=== PATIENT | female | born 1960 | race Caucasian/White ===

== ENCOUNTER 2016-05-25 18:28 | Emergency (ER) | payer OTHER ==
[2016-05-25 19:03] VITALS: BP 111/60
--- NOTE | 2016-05-25 19:33 | UC ---
Cardiac HPI - HPI Summary HPI Summary: The patient comes in today for: 1. Cough, "horizontal chest pain," Onset: Cough 10 days, horizontal chest pain x 3 days. Palliative/provocative: Walking makes her more short of breath. Coughing makes her chest pain worse. Quality: Dull chest pain. Region: Right and left chest retrosternal Severity: 3/10 Time: Constant. Associated symptoms: Walking makes her more short of breath. Walking does not necessarily makes her chest pain worse. Fevers: None recently Previous cardiac disease: None. But, she has not seen a physician in 10 years. CAD risk factors: Smoking: (-), HTN: (-), DM: (-), Fam Hx: (-), cholesterol: (?) Nausea: None. Diaphoresis: Present. Heartburn: Negative Post nasal drip: Negative. * - History of Current Complaint Chief Complaint: UCChestPain Stated Complaint: CHEST & EAR PAIN,COUGH Time Seen by Provider: 05/25/16 19:27 Hx Obtained From: Patient - Allergy/Home Medications Allergies/Adverse Reactions: Allergies Allergy/AdvReac Type Severity Reaction Status Date / Time No Known Allergies Allergy Verified 05/25/16 18:54 Home Medications: Home Medications Dextromethorphan-Phenylephrine [Theraflu Expressmax Sever 10-5-325 mg] 2 tab PO Q4HR PRN 05/25/16 [History Confirmed 05/25/16] PMH/Surg Hx/FS Hx/Imm Hx Previously Healthy: Yes Endocrine History Of: Denies: Diabetes, Thyroid Disease, Hyperthyroidism, Hypothyroidism, Dyslipidemia Cardiovascular History Of: Denies: Cardiac Disorders, Hypertension, Pacemaker/ICD, Myocardial Infarction , Congestive Heart Failure, Atrial Fibrillation, Deep Vein Thrombosis, Bleeding Disorders Respiratory History Of: Denies: COPD, Asthma, Bronchitis, Pneumonia, Pulmonary Embolism GI/ History Of: Denies: Gastroesophageal Reflux, Ulcer, Gastrointestinal Bleed, Gall Bladder Disease, Kidney Stones, Diverticulitis, Renal Disease, Urosepsis Neurological History Of: Denies: TIA, CVA, Dementia, Seizures, Migraine Psychological History Of: Denies: Anxiety, Depression, Bipolar Disorder, Schizophrenia, Post Traumatic Stress Disorder Cancer History Of: Denies: Lung Cancer, Colorectal Cancer, Breast Cancer, Prostate Cancer, Cervical Cancer Other History Of: Negative For: HIV, Hepatitis B, Hepatitis C, Anticoagulant Therapy - Surgical History Surgical History: Yes Surgery Procedure, Year, and Place: at 14 yoa partial thyroidectomy - no meds - Family History Known Family History: Negative: Cardiac Disease, Hypertension - Social History Occupation: Employed Full-time Alcohol Use: Weekly Substance Use Type: None Smoking Status (MU): Never Smoked Tobacco - Immunization History Most Recent Influenza Vaccination: Not utd Most Recent Tetanus Shot: Unsure Review of Systems Constitutional: Negative Skin: Negative Eyes: Negative ENT: Negative, Sore Throat, Nasal Discharge - Clear. Respiratory: Cough Cardiovascular: Chest Pain Gastrointestinal: Negative Genitourinary: Negative Motor: Negative All Other Systems Reviewed And Are Negative: Yes Physical Exam Triage Information Reviewed: Yes Appearance: Well-Appearing, No Pain Distress, Well-Nourished Vital Signs: Initial Vital Signs Temp 99.6 F 05/25/16 18:56 Pulse 87 05/25/16 18:56 Resp 16 05/25/16 18:56 BP 111/60 05/25/16 18:56 Pulse Ox 98 05/25/16 18:56 Vital Signs Reviewed: Yes Eyes: Positive: Conjunctiva Clear ENT: Positive: Hearing grossly normal. Negative: Pharyngeal erythema, Nasal congestion, Nasal drainage, TM bulging, TM dull, TM red, Tonsillar swelling, Tonsillar exudate Dental: Negative: Gross Decay/Caries @, Dental Fracture @ Neck: Positive: Supple, Nontender, No Lymphadenopathy. Negative: Nuchal Rigidity Respiratory: Positive: Lungs clear, No respiratory distress, No accessory muscle use. Negative: Rhonchi, Wheezing, Expiration, Inspiration Cardiovascular: Positive: RRR, No Murmur Abdomen Description: Positive: Nontender, No Organomegaly, Soft. Negative: Distended, Guarding Musculoskeletal: Positive: Strength Intact, ROM Intact, Other: - Pressure of the left sternal border does reproduce her "horizontal chest pain." Neurological: Positive: Alert, Muscle Tone Normal Psychological: Positive: Age Appropriate Behavior, Consolable Skin: Negative: rashes, breakdown Diagnostics - Laboratory Diagnostic Studies Completed/Ordered: EKG: Rate: 83. Rhythm: sinus. Ectopy: None. Acute changes: None. - Radiology No standard instances Xray Interpretation: No Acute Changes Radiology Interpretation Completed By: Radiologist - Assessment/Plan Course Of Treatment: Patient was told of the negative CXR for pneumonia. She was told of her treatment options and will start medications at this time. - Clinical Impression Provider Diagnoses: Post infectious cough Discharge - Discharge Plan Condition: Stable Disposition: HOME Patient Education Materials: Chronic Cough (ED), Upper Respiratory Infection ( ED), Sinusitis (ED) Referrals: [facility] [place], [place] [facility]AL [Outside] Francisco Hilton MD [Primary Care Provider] - 1 Week (Please see your primary care provider in about three days to see how well you are doing. If you don't have a primary care provider, please contact the physician referral service. If you can't get in timely, please you may come back to see us until you can. If you get worse, please be seen sooner by us or the ER.)
--- NOTE | 2016-05-25 20:10 | RAD ---
HISTORY: Cough, chest pain COMPARISONS: None VIEWS: 2: Frontal dual-energy and lateral views of the chest. FINDINGS: CARDIOMEDIASTINAL SILHOUETTE: The cardiomediastinal silhouette is normal. MIRTHA: The mirtha are normal. PLEURA: The costophrenic angles are sharp. No pleural abnormalities are noted. LUNG PARENCHYMA: There is minimal linear opacification of the right lung base ABDOMEN: The upper abdomen is clear. There is no subphrenic gas. BONES AND SOFT TISSUES: No bone or soft tissue abnormalities are noted. OTHER: None. IMPRESSION: MINIMAL LINEAR ATELECTASIS OF THE RIGHT LUNG BASE
== END 2016-05-25 20:46 | disposition home or self-care (01) ==
LOC: UCEAST 18:28
DX: R05 Cough (principal); R07.2 Precordial pain; R06.02 Shortness of breath
CPT/HCPCS: 71020; 93005; 99202; G0463

== ENCOUNTER 2019-06-18 09:21 | Emergency (ER) | payer OTHER ==
--- NOTE | 2019-06-18 09:28 | UC ---
UC General HPI - HPI Summary HPI Summary: reviewed [facility] pt states her right eyelid is swollen, symptoms for two days. Pt was told she may have a blocked tear duct. Pleasant 59 yo female c/o R swollen eyelid since yesterday am. No fever / chills. Vision a little blurry. Has been using teabags to the eyelid every couple hours. This am awoke, it was worse. Noted clear like drainage sticking the eyelids together. Not sure if has sinus issues, if so she reports that she is asymptomatic. No fever / chills. No ear pain. No sob /cp / cough. No GI sx reported. Tested covid 19 results neg 06/06/19 (after possible exposure). - History of Current Complaint Stated Complaint: EYE COMPLAINT Time Seen by Provider: 06/18/19 09:27 Hx Obtained From: Patient - Allergy/Home Medications Allergies/Adverse Reactions: Allergies Allergy/AdvReac Type Severity Reaction Status Date / Time No Known Allergies Allergy Verified 06/18/19 09:34 Home Medications: Home Medications Amoxicillin/Clavulanate TAB* [Augmentin TAB 875*] 875 mg PO BID #10 tab [Rx] Erythromycin OPTH OINT* [Erythromycin 0.5% OPTH OINT*] 1 applic RIGHT EYE TID 5 Days #1 ophth.oint 06/18/19 [Rx] PMH/Surg Hx/FS Hx/Imm Hx Previously Healthy: Yes Other History Of: Negative For: HIV, Hepatitis B, Hepatitis C, Anticoagulant Therapy - Surgical History Surgical History: Yes Surgery Procedure, Year, and Place: at 14 yoa partial thyroidectomy - no meds - Family History Known Family History: Negative: Cardiac Disease, Hypertension - Social History Alcohol Use: Weekly Substance Use Type: None Smoking Status (MU): Never Smoked Tobacco - Immunization History Most Recent Influenza Vaccination: Not utd Most Recent Tetanus Shot: Unsure Review of Systems All Other Systems Reviewed And Are Negative: Yes Constitutional: Positive: Negative Skin: Positive: Negative Eyes: Positive: Blurred Vision, Drainage ENT: Positive: Negative - see hpi Respiratory: Positive: Negative Cardiovascular: Positive: Negative Gastrointestinal: Positive: Negative Genitourinary: Positive: Negative Motor: Positive: Negative Neurovascular: Positive: Negative Musculoskeletal: Positive: Negative Neurological/Mental Status: Positive: Negative Psychological: Positive: Negative Is Patient Immunocompromised?: No Physical Exam Triage Information Reviewed: Yes Appearance: Well-Appearing Vital Signs Reviewed: Yes Eye Exam: Other - perrla eomi R upper lid + focal swelling at base of eyelash, + mild redness extending superiorly. Both eyes a little watery. Denies use of contact lens or makeup. R sclera a little injected. Declines flourescein stain. ENT Exam: Normal - TM lane, post pharynx nad Neck exam: Normal Neck: Positive: Supple, Nontender, No Lymphadenopathy Respiratory Exam: Normal - RR normal, no dyspnea, no tachypnea Cardiovascular Exam: Normal - nad Abdominal Exam: Normal Musculoskeletal Exam: Normal Neurological Exam: Normal - grossly nonfocal Psychological Exam: Normal - nad Skin Exam: Normal - no visible or reported rash. see eye exam Course/Dx - Course Course Of Treatment: Eye is a little watery, but not overly red (a little injected), non tender, nonphotophobic. Pt thinks visual acuity discrepancy was d/t her glasses fogging up during the vis acuity check. Seems ok now. + c/w stye. Mild associated cellulitis. reivewed coa / tx plan. immun utd per pt. Questions as posed answered to the best of my ability. - Diagnoses Provider Diagnosis: Stye, Cellulitis of right eyelid Discharge ED - Sign-Out/Discharge Documenting (check all that apply): Patient Departure All imaging exams completed and their final reports reviewed: No Studies - Discharge Plan Condition: Stable Disposition: HOME Prescriptions: Amoxicillin/Clavulanate TAB* [Augmentin TAB 875*] 875 mg PO BID #10 tab Erythromycin OPTH OINT* [Erythromycin 0.5% OPTH OINT*] 1 applic RIGHT EYE TID 5 Days #1 ophth.oint Patient Education Materials: Cellulitis (ED), Stye (ED) Referrals: Francisco Hilton MD [Primary Care Provider] - Additional Instructions: Consider over the counter anti-histamine as needed for swelling. Yogurt every day (or probiotic) while you are taking antibiotic. Minimize tea bags eye. Sleep with lots of pillows. Please seek medical attention for worse or new problems. - Billing Disposition and Condition Condition: STABLE Disposition: Home
[2019-06-18] MEDS ORDERED: Tetracaine 0.5% OPTH.SOL 4 ML* 1 DROP BTL ONE (09:37)
[2019-06-18] MEDS ORDERED: Fluorescein Sodium TOPICAL* 1 MG TEST STRIP OPHTHALMIC ONE (09:37)
[2019-06-18 09:42] VITALS: BP 105/65
== END 2019-06-18 10:12 | disposition home or self-care (01) ==
LOC: UCEAST 09:21
DX: H00.011 Hordeolum externum right upper eyelid (principal); H00.031 Abscess of right upper eyelid
CPT/HCPCS: 99212; A9270-GY; G0463